=== PATIENT | female | born 1990 | race Caucasian/White ===

== ENCOUNTER → 2022-10-16 | Outpatient (CLI) | payer OTHER | END | disposition home or self-care (01) | LOC: LAB SHORT 16:46 | PROVIDERS: Family Medicine | DX: Z12.4 Encounter for screening for malignant neoplasm of cervix (principal) | CPT/HCPCS: G0123 ==

== ENCOUNTER 2023-02-13 08:37 | Observation (INO) | payer BC ==
[~2023-02-13] VITALS: Ht 170.2 cm; Wt 85.5 kg
[2023-02-13] VITALS (18 sets, daily range): BP systolic 82–120; BP diastolic 41–83
[~2023-02-13 08:37] MED LIST: ESCITALOPRAM OX10 M1 PO; HYDPAM25 PO; KURVELO PO; MONT10T PO; PROBIOTIC1 EA13 PO; PROP10 PO; Vitamin D1000 UNI1 PO
--- NOTE | 2023-02-13 11:20 | NUR ---
02/13/23 1120 Jumana Hawley 14 FR GRIFFIN PLACED WITH VAGINAL PREP 10CC BALLOON INFLATED
--- NOTE | 2023-02-13 16:33 | NUR ---
Pt. is awake in bed and welcomes my visit. Pt's sister is preasant. Pt. is pleasant, and displays evidence of engagement and awareness. Rapport is established and Pt. verbalized gratitude for the spiritual care visit. Pt. welcomes this manager credit risk to return prior to discharge.
--- NOTE | 2023-02-13 17:39 | NUR ---
SHIFT SUMMARY PT ARRIVED TO UNIT AT APROX 1330. PT WITH TRANSVERSE INCISION TO LOWER ABD COVERED W/MEDIPORE DRESSING C/D/I. PT REPORTED PAIN AT 2/10 [place]OX 1500[place] [address] PT MEDICATED WITH 10/325 NORCO IN ANTICIPATION OF WALKING. AT 1700 THIR RN TO ROOM, ASSITED PT TO STAND. PT BECAME DIAPHORETIC AND DIZZY, STATED "I FEEL LIKE I'M GOING TO PASS OUT" PT HELPED BACK TO LYING POSITION. PT STATES SHE IS FEELING BETTER AT THIS TIME. GRIFFIN PATENT, DRAINING CLEAR YELLOW URINE. SALINE LOCKED, TAKING PO WITH NO N/V.
[2023-02-14 03:42] VITALS: BP 93/63
[2023-02-14 05:10] LABS: BASOPHILS ABSOLUTE AUTO 0.02 K/mm3 (0.00-0.23); BASOPHILS PERCENT AUTO 0 % (0-2); EOSINOPHILS PERCENT AUTO 0 % (0-6); Hematocrit 34.7 % (33.0-51.0); Hemoglobin 11.7 g/dL (11.5-16.0); IMMATURE GRAN ABSOLUTE AUTO 0.06 K/mm3 (0.00-0.10); IMMATURE GRAN PERCENT AUTO 0 % (0-1); LYMPHOCYTES ABSOLUTE AUTO 1.97 K/mm3 (0.84-5.20); LYMPHOCYTES PERCENT AUTO 13 % (21-46); MONOCYTES ABSOLUTE AUTO 1.18 K/mm3 (0.16-1.47); MONOCYTES PERCENT AUTO 8 % (4-13); Mean Corpuscular HGB 29.4 pg (26.0-34.0); Mean Corpuscular HGB Conc 33.7 g/dL (31.5-36.5); Mean Corpuscular Volume 87 fL (80-100); Mean Platelet Volume 9.6 fL (9.1-12.4); NEUTROPHILS ABSOLUTE AUTO 11.82 K/mm3 (1.96-9.15); NEUTROPHILS PERCENT AUTO 79 % (41-73); Platelet Count 322 K/mm3 (150-400); RDW Coefficient Variation 12.7 % (11.7-14.2); RDW Standard Deviation 40.9 fL (35.1-46.3); Red Blood Cell Count 3.98 M/mm3 (3.80-5.20); White Blood Cell Count 15.05 K/mm3 (4.00-11.30)
--- NOTE | 2023-02-14 06:44 | NUR ---
POD 1 S/P MYOMECTOMY. PT BP REMAINED SOFT 90'S/50'S; PT ASYMPTOMATIC. PAIN MGD W/TORADOL W/REP RELIEF. DRESSING CDI, ABD BINDER IN PLACE. PT JAZMIN REG PO, DENIED N/V, GRIFFIN PATANT DRNG YELLOW URINE, PLAN TO D/C CATH AFTER PT MOBILIZES THIS AM.
[2023-02-14 07:11] VITALS: BP 99/64
--- NOTE | 2023-02-14 10:28 | NUR ---
PT AMBULATED IN ROOM W/MIN ASSIST. UP TO CHAIR. ELIAS MARTINEZ'Tyesha AT APROX 1020. PT EDUCATED TO CALL FOR BATHROOM ASSIST.
[2023-02-14] MEDS ORDERED: Percocet 5-3251 EACH PO (14:05)
[2023-02-14] MEDS ORDERED: MOTRIN IB200 MG PO (14:06)
--- NOTE | 2023-02-14 16:31 | NUR ---
DISCHARGE PT DISCHARGED HOME FROM UNIT AT APROX 1630. PT GIVEN WRITTEN AND VERBAL DC INSTRUCTIONS AND VERBALIZED UNDERSTANDING OF THESE INSTRUCTIONS. PT PICKED UP RX'S PRIOR TO DC. IV REMOVED, TOLERATED WELL. WC TO CAR.
== END 2023-02-14 16:10 | disposition home or self-care (01) ==
LOC: SURS 08:37 → PRE IP 08:37 → SURS 13:28 → PRE IP 02-14 10:10 → SURS 02-14 16:10
PROVIDERS: ADMIT Obstetrics & Gynecology
PROC: 0UB90ZZ Excision of Uterus, Open Approach (ICD-10-PCS; principal; 2023-02-14)
DX: D25.0 Submucous leiomyoma of uterus (principal); D25.2 Subserosal leiomyoma of uterus; D25.1 Intramural leiomyoma of uterus; Z88.8 Allergy status to other drugs, medicaments and biological substances
CPT/HCPCS: 36415; 85025; 86850; 86900; 86901; 86923; 88305; 94760; A9270; G0378; J0690; J1100; J1885; J2250; J2370; J2405; J2704; J2765; J3010; J7120

== ENCOUNTER → 2023-03-22 | Outpatient (CLI) | payer BC ==
[~2023-03-22] MED LIST changes: +MOTRIN IB200 MG PO; +Percocet 5-3251 EACH PO
[2023-03-22 16:03] LABS: BASOPHILS ABSOLUTE AUTO 0.07 K/mm3 (0.00-0.23); BASOPHILS PERCENT AUTO 1 % (0-2); EOSINOPHILS ABSOLUTE AUTO 0.17 K/mm3 (0.00-0.68); EOSINOPHILS PERCENT AUTO 2 % (0-6); Hematocrit 42.7 % (33.0-51.0); Hemoglobin 14.3 g/dL (11.5-16.0); IMMATURE GRAN ABSOLUTE AUTO 0.03 K/mm3 (0.00-0.10); IMMATURE GRAN PERCENT AUTO 0 % (0-1); LYMPHOCYTES ABSOLUTE AUTO 3.04 K/mm3 (0.84-5.20); LYMPHOCYTES PERCENT AUTO 31 % (21-46); MONOCYTES ABSOLUTE AUTO 0.72 K/mm3 (0.16-1.47); MONOCYTES PERCENT AUTO 7 % (4-13); Mean Corpuscular HGB Conc 33.5 g/dL (31.5-36.5); Mean Corpuscular Volume 87 fL (80-100); Mean Platelet Volume 8.8 fL (9.1-12.4); NEUTROPHILS ABSOLUTE AUTO 5.65 K/mm3 (1.96-9.15); NEUTROPHILS PERCENT AUTO 58 % (41-73); Platelet Count 384 K/mm3 (150-400); RDW Coefficient Variation 12.4 % (11.7-14.2); RDW Standard Deviation 39.6 fL (35.1-46.3); Red Blood Cell Count 4.93 M/mm3 (3.80-5.20); White Blood Cell Count 9.68 K/mm3 (4.00-11.30)
[2023-03-22 16:12] LABS: Albumin, Blood 3.5 g/dL (3.4-5.0); Albumin/Globulin Ratio 0.8 (0.8-1.8); Bilirubin, Total 0.1 mg/dL (0.1-1.0); Bun/Creatinine Ratio 12.4 (12.0-20.0); Creatinine, Blood 0.89 mg/dL (0.40-1.00); Globulin, Blood 4.4 g/dL (2.2-4.0); Potassium, Blood 3.6 mmol/L (3.5-5.5); Total Protein, Blood 7.9 g/dL (6.4-8.2)
[2023-03-22 16:17] LABS: Calcium, Blood 8.8 mg/dL (8.5-10.1)
== END | disposition home or self-care (01) ==
LOC: LAB SHORT 15:59 → LAB 15:59
PROVIDERS: Physician Assistant Surgical
DX: R42 Dizziness and giddiness (principal)
CPT/HCPCS: 80053; 85025